=== PATIENT | male | born 1980 | race Caucasian/White ===

== ENCOUNTER 2017-03-17 00:10 | Emergency (ER) | payer OTHER ==
[~2017-03-17] VITALS: Ht 180.3 cm; Wt 86.4 kg
[~2017-03-17 00:10] MED LIST: IBUP-1827 PO; OXYC1TAB24 PO
[2017-03-17 00:20] VITALS: BP 136/78; PULSE 82; RESP 16; O2SAT 98
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
[2017-03-17] MEDS ORDERED: _HYDROcodone/APAP 5-325 mg Tablet PO PRN (00:30)
[2017-03-17 01:20] VITALS: BP 132/78; PULSE 82; RESP 18; O2SAT 98
== END 2017-03-17 01:22 ==
LOC: SED 00:10
DX: S82.001D Unspecified fracture of right patella, subsequent encounter for closed fracture with routine healing (principal); S40.021D Contusion of right upper arm, subsequent encounter; V89.2XXD Person injured in unspecified motor-vehicle accident, traffic, subsequent encounter; Y93.89 Activity, other specified; Y92.410 Unspecified street and highway as the place of occurrence of the external cause; Y99.8 Other external cause status; F17.200 Nicotine dependence, unspecified, uncomplicated; Z98.890 Other specified postprocedural states